=== PATIENT | female | born 1960 ===

== ENCOUNTER 2017-07-25 20:16 | Inpatient (IN) | payer MEDICAID ==
[2017-07-25 20:16] VITALS: BMI 24.7
[2017-07-25] MEDS ORDERED: Sodium Chloride 0.9% 1,000 ML IV STA ×2 (20:27→21:17)
[2017-07-25] MEDS ORDERED: Albuterol-Ipratrop 3 mg / 0.5 (3 ml) UD INH STA ×2 (20:46→21:18)
[2017-07-25] MEDS ORDERED: Albuterol-Ipratrop 3 mg / 0.5 (3 ml) UD ONE ×2 (21:09→22:36)
[2017-07-25] MEDS ORDERED: Iohexol 300 100 ML IJ ONE (21:10)
[2017-07-25] MEDS ORDERED: Sodium Chloride 0.9% 100 ML ONE (21:11)
[2017-07-25 21:16] LABS: VENOUS BLOOD GAS BASE EXCESS -0.1 mmol/L (0.0-2.0); VENOUS BLOOD GAS PCO2 52 mmHg (40-60); VENOUS BLOOD GAS PO2 19 mm/Hg (30-55); VENOUS BLOOD PH 7.32 (7.32-7.43)
[2017-07-25 21:21] LABS: BASO # 0.2 K/uL (0.0-0.2); BASO % 1.3 % (0.0-2.0); EOS % 0.3 % (0.0-4.0); HEMOGLOBIN 13.1 g/dL (12.0-16.0); LYMPH # 1.7 K/uL (1.0-4.3); LYMPH % 14.4 % (20.0-40.0); MEAN CORPUSCULAR HEMOGLOBIN 29.1 pg (27.0-31.0); MEAN CORPUSCULAR HGB CONC 33.1 g/dL (33.0-37.0); MEAN PLATELET VOLUME 9.5 fl (7.2-11.7); MONO # 0.9 K/uL (0.0-0.8); MONO % 7.7 % (0.0-10.0); NEUT # 9.2 K/uL (1.8-7.0); NEUT % 76.3 % (50.0-75.0); NRBC % 0.2 % (0.0-0.0); RBC 4.49 Mil/uL (3.80-5.20); RED CELL DISTRIBUTION WIDTH 16.6 % (11.5-14.5); WHITE BLOOD COUNT 12.1 K/uL (4.8-10.8)
[2017-07-25 21:32] LABS: ALB/GLOB RATIO 1.2 (1.0-2.1); ALBUMIN 3.8 g/dL (3.5-5.0); ALT/SGPT 16 U/L (9-52); AST/SGOT 24 U/L (14-36); BLOOD UREA NITROGEN 21 mg/dl (7-17); CALCIUM 8.7 mg/dL (8.4-10.2); GFR AFRICAN-AMERICAN > 60; GFR NON-AFRICAN AMERICAN > 60; LIPASE 86 U/L (23-300)
[2017-07-25 21:35] LABS: INR 1.1 (0.9-1.2); PARTIAL THROMBOPLASTIN TIME 49.3 Seconds (25.6-37.1); PROTHROMBIN TIME 12.7 Seconds (9.8-13.1)
--- NOTE | 2017-07-25 21:35 | ED PDOC ---
HPI:Nausea, Vomiting, Diarrhea Time Seen by Provider: 07/25/17 20:22 Chief Complaint (Nursing): GI Problem Chief Complaint (Provider): GI Problem History Per: Patient History/Exam Limitations: no limitations Onset/Duration Of Symptoms: Hrs (x 3) Current Symptoms Are (Timing): Still Present Additional Complaint(s): Ms. Lott is a 56 year old, female, with a history of chronic back pain, diabetes, asthma and COPD, who presents to the emergency department complaining of rectal bleeding, onset 3 hours ago. Patient reports shortness of breath, nausea, weakness, and 2 episodes of bright red per rectal bleeding with blood clots. Patient states no stool, just blood. Denies abdominal pain and associated fever. Patient reports taking nebulizer with minor relief of her symptoms. Patient states she cough, but is chronic due to COPD. PMD: Francisco Javier Pal Past Medical History Reviewed: Historical Data, Nursing Documentation, Vital Signs Vital Signs: Last Vital Signs Temp Pulse 122 H 07/25/17 20:22 Resp 16 07/25/17 20:22 BP 99/63 L 07/25/17 20:22 Pulse Ox 100 07/25/17 20:22 - Medical History PMH: Asthma, Bronchitis, COPD, Fibromyalgia, HTN, Hyperlipidemia Denies: Chronic Kidney Disease - Family History Family History: States: Unknown Family Hx - Social History Current smoker - smoking cessation education provided: Yes SMOKER/PACKS PER DAY:: 1 - Home Medications Home Medications: Ambulatory Orders Medication Instructions Recorded Acetaminophen/Oxycodone Hydr 1 tab PO Q6 PRN 02/02/14 [Percocet 10/325 mg Tab] Albuterol HFA [Ventolin HFA 90 1 puff IH Q6 PRN 02/02/14 mcg/actuation (8 g)] Baclofen 10 mg PO TID 02/02/14 Budesonide/Formoterol Fumarate 1 aer IH BID 02/02/14 [Symbicort] Hydrochlorothiazide/Losartan 1 tab PO DAILY 02/02/14 [Losartan Potassium-Hydrochlorothiazide 12.5 M] Ibuprofen [Ibuprofen] 600 mg PO Q6 PRN 02/02/14 MetFORMIN [glucoPHAGE] 1,000 mg PO BID 02/02/14 Montelukast [Singulair] 10 mg PO DAILY 02/02/14 Omeprazole 40 mg PO DAILY 02/02/14 Pregabalin [Lyrica] 75 mg PO BID 02/02/14 Sertraline HCl 75 mg PO DAILY 02/02/14 Loteprednol Etabonate [Alrex] 0.2 % EACHEYE DAILY 07/26/17 Pravastatin Sodium [Pravachol] 40 mg PO DAILY 07/26/17 - Allergies Allergies/Adverse Reactions: Allergies Allergy/AdvReac Type Severity Reaction Status Date / Time No Known Allergies Allergy Verified 02/02/14 12:53 Review of Systems ROS Statement: Except As Marked, All Systems Reviewed And Found Negative Constitutional: Positive for: Weakness. Negative for: Fever Respiratory: Positive for: Cough (Chronic), Shortness of Breath Gastrointestinal: Positive for: Nausea, Other (bright red per rectal bleeding with blood clots). Negative for: Abdominal Pain Physical Exam - Reviewed Nursing Documentation Reviewed: Yes Vital Signs Reviewed: Yes - Physical Exam Appears: Positive for: Non-toxic Head Exam: Positive for: ATRAUMATIC, NORMAL INSPECTION, NORMOCEPHALIC Skin: Positive for: Normal Color, Warm, Dry Eye Exam: Positive for: Normal appearance ENT: Positive for: Normal ENT Inspection Neck: Positive for: Normal Cardiovascular/Chest: Positive for: Tachycardia Respiratory: Positive for: Rhonchi, Wheezing (Bilateral expiratory wheezing) Gastrointestinal/Abdominal: Positive for: Normal Exam Back: Positive for: Normal Inspection Extremity: Positive for: Normal ROM. Negative for: Deformity Neurologic/Psych: Positive for: Alert, Oriented. Negative for: Motor/Sensory Deficits - Laboratory Results Result Diagrams: 07/25/17 21:00 07/25/17 21:00 - ECG O2 Sat by Pulse Oximetry: 100 (RA) Pulse Ox Interpretation: Normal - Critical Care Total Time (In Min): 30 Medical Decision Making Medical Decision Making: Time: 20:27 Impression: 56 year old female with bright red per rectal bleeding and COPD exacerbation Plan: - ABO/RH Type Stat - Type and Screen Stat - Venous Blood Gas Shock Panel - Accucheck - Protonix Inj - CMP - Lipase - EKG Time: 20:42 - BNP - Troponin I - Duoneb 3 mg/0.5 mg (3 ml) UD - Occult Blood, Stool, ER Stat - Peak Flow Pre/Post Treatment Time: 20:46 - SOLU-Medrol Time: 20:55 - CT Abdominal and Pelvis IV Contrast Only Time: 21:10 - Chest X-Ray Time: 21:18 - Peak Flow Pre/Post Treatment - Influenza A B Stat Time: 21:46 - Call GI Consult Discussed with Dr. Treadwell who agrees with plan and will see her as an inpatient. - Admit for further tx Dx GI Bleed, COPD Exacerbation, Influenza Guarded (+) for influenza a 2320 CTA A/P Findings: LOWER THORAX: No infiltrate seen in the lung bases. ABDOMEN: LIVER: Area of low density in the liver, abutting the falciform ligament, most compatible with focal fatty infiltration. GALLBLADDER AND BILE DUCTS: No CT evidence of acute cholecystitis. No evidence of significant biliary ductal dilatation. PANCREAS: No CT evidence of acute pancreatitis. SPLEEN: No acute abnormality of the spleen identified. ADRENALS: No acute abnormality of the adrenal glands identified. KIDNEYS AND URETERS: Incidental fluid density left renal lesion, measuring less than 10 mm. Consistent with the [employer]'s Incidental Findings Committee Report (J Am Juve Radiol 2010): Unless the patient's specific circumstances suggest otherwise , any cystic kidney lesion less than 1.0 cm not otherwise characterized in this report as possessing suspicious or indeterminate imaging features is/are highly likely to be benign and do not require follow-up imaging or biopsy. No acute abnormality of the kidneys identified. STOMACH AND BOWEL: Colonic diverticulosis, with no evidence of acute diverticulitis. Left hemicolon is decompressed, which limits evaluation for wall thickening. Otherwise, no significant abnormality of the bowel is identified. No evidence of bowel obstruction. No evidence of diffuse colitis/pancolitis. No acute abnormality of the stomach or duodenum identified. APPENDIX: Appendix is seen, and is within normal limits in appearance. PELVIS: BLADDER: No acute abnormality of the bladder identified. REPRODUCTIVE: Small, calcified posterior para-uterine masses, most compatible with calcified fibroids. No evidence of large adnexal masses. ABDOMEN and PELVIS: INTRAPERITONEAL SPACE: Elongated, fluid density/cystic, masslike area seen in the anterior abdomen, located just deep to the anterior abdominal wall musculature, abutting the peritoneal fascia. This measures 8 x 10 x 0.9 cm (craniocaudal x transverse x AP dimensions). It is suspicious for a chronic fluid collection. It has well-defined, partially calcified margins. It does not contain gas, have a thick wall, or demonstrate significant adjacent inflammation to suggest an abscess. It extends inferiorly to the level of the umbilicus. No evidence of free air or free fluid. BONES/JOINTS: No acute fractures or other acute bony abnormality noted. SOFT TISSUES: SOFT TISSUES: No evidence of abdominal wall hernia containing bowel. VASCULATURE: No evidence of abdominal aortic aneurysm. No evidence of periaortic hemorrhage. LYMPH NODES: No evidence of diffuse lymphadenopathy. IMPRESSION: - NO EVIDENCE OF SIGNIFICANT ACUTE PROCESS. - 10 x 8 x 0.9 cm elongated, fluid collection in the anterior abdomen, located just deep to the abdominal wall musculature, which has partially calcified margins. This is most likely a chronic calcified hematoma, postoperative seroma, or postoperative lymphocele. It does not have CT features to suggest a ovi abscess. Recommend clinical correlation. - Colonic diverticulosis, without diverticulitis. There is otherwise no cause for hematochezia identified. - See above for remaining findings. Scribe Attestation: Documented by Godfrey Griffin, acting as a scribe for Bc Caba Provider Scribe Attestation: All medical record entries made by the Scribe were at my direction and personally dictated by me. I have reviewed the chart and agree that the record accurately reflects my personal performance of the history, physical exam, medical decision making, and the department course for this patient. I have also personally directed, reviewed, and agree with the discharge instructions and disposition. Scribe Attestation: Documented by Godfrey Griffin, acting as a scribe for Bc Caba Provider Scribe Attestation: All medical record entries made by the Scribe were at my direction and personally dictated by me. I have reviewed the chart and agree that the record accurately reflects my personal performance of the history, physical exam, medical decision making, and the department course for this patient. I have also personally directed, reviewed, and agree with the discharge instructions and disposition. Disposition - Clinical Impression Clinical Impression: COPD exacerbation, GI bleed, Influenza - Patient ED Disposition Is Patient to be Admitted: Yes - Disposition Disposition: Routine/Home Disposition Time: 04:01 Condition: GUARDED
[2017-07-25 21:43] LABS: B-TYPE NATRIURETIC PEPTIDE 70.8 pg/ml (0-900)
[2017-07-25] MEDS ORDERED: Albuterol-Ipratrop 3 mg / 0.5 (3 ml) UD INH PRN (22:20)
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
[2017-07-25] MEDS: Pantoprazole 40 MG in Sodium Chloride 0.9% 100 ML IV SCH (22:37)
[2017-07-25] MEDS ORDERED: Sodium Chloride 0.9% 1,000 ML IV SCH (23:15)
--- NOTE | 2017-07-25 23:20 | CT ---
EXAM: CT Abdomen and Pelvis With Intravenous Contrast EXAM DATE/TIME: 07/25/2017 8:55 PM CLINICAL HISTORY: 56 years old, female; Signs and symptoms; Other: Rectal bleeding; Prior surgery; Surgery date: 6+ months; Surgery type: Bilat. Ovaian cysts. Hernia repair; Additional info: Gi bleed. Sent phy. Doc. TECHNIQUE: Axial computed tomography images of the abdomen and pelvis with intravenous contrast. All CT scans at this facility use one or more dose reduction techniques, viz.: automated exposure control; ma/kV adjustment per patient size (including targeted exams where dose is matched to indication; i.e. head); or iterative reconstruction technique. Coronal and sagittal reformatted images were created and reviewed. CONTRAST: 90 mL of [id number] administered intravenously. COMPARISON: No relevant prior studies available. FINDINGS: LOWER THORAX: No infiltrate seen in the lung bases. ABDOMEN: LIVER: Area of low density in the liver, abutting the falciform ligament, most compatible with focal fatty infiltration. GALLBLADDER AND BILE DUCTS: No CT evidence of acute cholecystitis. No evidence of significant biliary ductal dilatation. PANCREAS: No CT evidence of acute pancreatitis. SPLEEN: No acute abnormality of the spleen identified. ADRENALS: No acute abnormality of the adrenal glands identified. KIDNEYS AND URETERS: Incidental fluid density left renal lesion, measuring less than 10 mm. Consistent with the [employer]?s Incidental Findings Committee Report (J [employer]iol 2010): Unless the patient?s specific circumstances suggest otherwise, any cystic kidney lesion less than 1.0 cm not otherwise characterized in this report as possessing suspicious or indeterminate imaging features is/are highly likely to be benign and do not require follow-up imaging or biopsy. No acute abnormality of the kidneys identified. STOMACH AND BOWEL: Colonic diverticulosis, with no evidence of acute diverticulitis. Left hemicolon is decompressed, which limits evaluation for wall thickening. Otherwise, no significant abnormality of the bowel is identified. No evidence of bowel obstruction. No evidence of diffuse colitis/pancolitis. No acute abnormality of the stomach or duodenum identified. APPENDIX: Appendix is seen, and is within normal limits in appearance. PELVIS: BLADDER: No acute abnormality of the bladder identified. REPRODUCTIVE: Small, calcified posterior para-uterine masses, most compatible with calcified fibroids. No evidence of large adnexal masses. ABDOMEN and PELVIS: INTRAPERITONEAL SPACE: Elongated, fluid density/cystic, masslike area seen in the anterior abdomen, located just deep to the anterior abdominal wall musculature, abutting the peritoneal fascia. This measures 8 x 10 x 0.9 cm (craniocaudal x transverse x AP dimensions). It is suspicious for a chronic fluid collection. It has well-defined, partially calcified margins. It does not contain gas, have a thick wall, or demonstrate significant adjacent inflammation to suggest an abscess. It extends inferiorly to the level of the umbilicus. No evidence of free air or free fluid. BONES/JOINTS: No acute fractures or other acute bony abnormality noted. SOFT TISSUES: SOFT TISSUES: No evidence of abdominal wall hernia containing bowel. VASCULATURE: No evidence of abdominal aortic aneurysm. No evidence of periaortic hemorrhage. LYMPH NODES: No evidence of diffuse lymphadenopathy. IMPRESSION: - NO EVIDENCE OF SIGNIFICANT ACUTE PROCESS. - 10 x 8 x 0.9 cm elongated, fluid collection in the anterior abdomen, located just deep to the abdominal wall musculature, which has partially calcified margins. This is most likely a chronic calcified hematoma, postoperative seroma, or postoperative lymphocele. It does not have CT features to suggest a ovi abscess. Recommend clinical correlation. - Colonic diverticulosis, without diverticulitis. There is otherwise no cause for hematochezia identified. - See above for remaining findings.
[2017-07-26] MEDS: Pantoprazole 40 MG in Sodium Chloride 0.9% 100 ML IV SCH ×2 (05:20→10:34)
[2017-07-26 07:32] LABS: BLOOD UREA NITROGEN 14 mg/dl (7-17); CALCIUM 7.9 mg/dL (8.4-10.2); GFR AFRICAN-AMERICAN > 60; GFR NON-AFRICAN AMERICAN > 60
--- NOTE | 2017-07-26 09:16 | RAD ---
HISTORY: SOB COMPARISON: Chest radiograph dated 10/21/2016. FINDINGS: LUNGS: No active pulmonary disease. PLEURA: No significant pleural effusion identified, no pneumothorax apparent. CARDIOVASCULAR: Cardiomediastinal silhouette within normal limits. OSSEOUS STRUCTURES: Unchanged. VISUALIZED UPPER ABDOMEN: Normal. OTHER FINDINGS: None. IMPRESSION: No active disease.
[2017-07-26] MEDS: Fluticasone-Salmeterol 100-50mcg Diskus IH SCH ×2 (10:29→16:26)
[2017-07-26 10:33] LABS: HEMOGLOBIN 10.3 g/dL (12.0-16.0); MEAN CELL VOLUME 87.1 fl (81.0-99.0); MEAN CORPUSCULAR HEMOGLOBIN 29.8 pg (27.0-31.0); MEAN CORPUSCULAR HGB CONC 34.2 g/dL (33.0-37.0); RBC 3.46 Mil/uL (3.80-5.20); RED CELL DISTRIBUTION WIDTH 16.8 % (11.5-14.5); WHITE BLOOD COUNT 6.9 K/uL (4.8-10.8)
[2017-07-26] MEDS ORDERED: Albuterol HFA 90 mcg/actuation (8 g) IH PRN (11:23)
[2017-07-26] MEDS ORDERED: methylPREDNISolone 40 MG in Sodium Chloride 0.9% 50 ML IVPB STA (11:26)
[2017-07-26] MEDS ORDERED: Albuterol-Ipratrop 3 mg / 0.5 (3 ml) UD INH STA (11:28)
[2017-07-26] MEDS ORDERED: Pantoprazole 40 MG in Sodium Chloride 0.9% 100 ML IV SCH (11:30)
[2017-07-26] MEDS: Oxycodone/Acetaminophen 5/325 mg Tab PO PRN ×4 (12:04→21:56)
[2017-07-26] MEDS: Albuterol-Ipratrop 3 mg / 0.5 (3 ml) UD INH SCH ×3 (12:49→19:49)
[2017-07-26] MEDS ORDERED: methylPREDNISolone 40 MG in Sodium Chloride 0.9% 50 ML IV STA (13:29)
[2017-07-26] MEDS ORDERED: MethylPREDNISolone 40 mg Vial IVP ONE (14:00)
--- NOTE | 2017-07-26 14:46 | CP.CCUPN ---
CCU Subjective - Physician Review Subjective (Free Text): All Physician notes ad Nursing notes reviewed: No further BMs since prior to admission. Denies any abdominal pain, N/V, dizziness, weakness. Remains on PPI drip and NSS at 100ml/hr. Discussed events with GI; repeat HGB lower. Other Vitals and I/Os reviewed. ROS: No other pertinent negs or positives on 10+ system review. PMSFH: All other historical Nursing and physician documentation reviewed to date; no new pertinent info noted relevant to current medical problems. CXR: (my interp)- clear ling blair. CTAP results reviewed: no acute pathology, no abscess, + colonic divetriculosis IMPRESSION / MAJOR PROBLEMS NOW: 1. GI Bleed, with BRBPR; unclear etiol: - UGI with rapid transit 2 NSAID- gastritis, versus true Lower GI tract source: diverticular bleed, AVM, other occult CA?? 2. COPD with acute TracheoBronchitis exacerbated by Influenza A infection. 3. Chronic Pain Syndrome PLAN: 1. Could stop PPI drip, convert to PO PPi bid. 2. Serial H/H monitoring. 3. Initially hypotensive and tachycardic, now resolved; GI considering EGD. 4. Empiric steroids started in ED; continue with DuoNebs. Hold on Abx, on Oseltamavir. 5. Cautious analgesics. 6. So far, no need for hemodynamic nor assisted breathing support. CCU Objective - Vital Signs / Intake & Output Vital Signs (Last 4 hours): Vital Signs Temp Pulse 07/26/17 12:49 94 H 07/26/17 12:00 98.1 F Intake and Output (Last 8hrs): Intake & Output 07/25/17 07/26/17 07/26/17 22:59 06:59 14:59 Intake Total 320 Balance 320 Weight 130 lb Intake: IV 120 Oral 200 Other: # Voids Urine, Voided 2 - Physical Exam Head: Positive for: Normocephalic Pupils: Positive for: PERRL Extroacular Muscles: Positive for: EOMI Conjunctiva: Positive for: Normal. Negative for: Icteric Mouth: Positive for: Moist Mucous Membranes Neck: Negative for: JVD Respiratory/Chest: Positive for: Wheezes, Rhonchi. Negative for: Respiratory Distress, Accessory Muscle Use Cardiovascular: Positive for: Regular Rate and Rhythm, Tachycardic. Negative for: Murmurs, Rub Abdomen: Positive for: Normal Bowel Sounds. Negative for: Tenderness, Distention, Mass/Organomegaly Lower Extremity: Positive for: NORMAL PULSES. Negative for: CALF TENDERNESS, Cyanosis Neurological: Positive for: GCS=15, CN II-XII Intact, Motor Func Grossly Intact , Normal Sensory Function Skin: Positive for: Warm, Dry. Negative for: Rashes Psychiatric: Positive for: Alert, Oriented x 3 - Medications Active Medications: Active Medications Generic Name Dose Route Start Last Admin Trade Name Freq PRN Reason Stop Dose Admin Albuterol 1 puff 07/26/17 11:23 Ventolin Hfa 90 Mcg/Actuation (8 G) IH Q6 PRN Shortness of Breath Albuterol/Ipratropium 3 ml 07/25/17 22:20 Duoneb 3 Mg/0.5 Mg (3 Ml) Ud INH RQ6 PRN Shortness of Breath Albuterol/Ipratropium 3 ml 07/26/17 12:00 07/26/17 12:49 Duoneb 3 Mg/0.5 Mg (3 Ml) Ud INH 3 ml RQID SHANNAN Administration Baclofen 10 mg 07/26/17 13:00 Lioresal PO TID SHANNAN Home Med 0.2 % 07/27/17 09:00 Loteprednol Etabonate [Alrex] EACHEYE DAILY SHANNAN Hydrochlorothiazide 12.5 mg 07/27/17 09:00 Microzide PO DAILY SHANNAN Pantoprazole Sodium 40 mg/ 100 mls @ 20 mls/hr 07/26/17 11:30 07/26/17 14:25 Sodium Chloride IV 20 mls/hr Q5H SHANNAN Administration Losartan Potassium 50 mg 07/27/17 09:00 Cozaar PO DAILY SHANNAN Methylprednisolone 40 mg 07/26/17 17:00 Solu-Medrol IVP Q8 SHANNAN Montelukast Sodium 10 mg 07/27/17 09:00 Singulair PO DAILY SHANNAN Oseltamivir Phosphate 75 mg 07/26/17 09:00 07/26/17 10:29 Tamiflu Cap PO 75 mg BID SHANNAN Administration Protocol Oxycodone/Acetaminophen 1 tab 07/26/17 11:25 07/26/17 12:04 Percocet 5/325 Mg Tab PO 07/29/17 11:26 1 tab Q4 PRN Administration Pain, moderate (4-7) Oxycodone/Acetaminophen 2 tab 07/26/17 11:25 Percocet 5/325 Mg Tab PO 07/29/17 11:26 Q6 PRN Pain, severe (8-10) Pravastatin Sodium 40 mg 07/27/17 09:00 Pravachol PO DAILY SHANNAN Pregabalin 75 mg 07/26/17 17:00 Lyrica PO BID SHANNAN Fluticasone/Salmeterol 1 puff 07/26/17 09:00 07/26/17 10:29 Advair Diskus 100/50 IH 1 spr BID SHANNAN Administration Sertraline HCl 75 mg 07/27/17 09:00 Zoloft PO DAILY SHANNAN - Patient Studies Lab Studies: Lab Studies 07/26/17 07/26/17 07/26/17 Range/Units 12:20 10:25 08:36 WBC 6.9 (4.8-10.8) K/uL RBC 3.46 L (3.80-5.20) Mil/uL Hgb 10.3 L D (12.0-16.0) g/dL Hct 30.1 L (34.0-47.0) % MCV 87.1 (81.0-99.0) fl MCH 29.8 (27.0-31.0) pg MCHC 34.2 (33.0-37.0) g/dL RDW 16.8 H (11.5-14.5) % Plt Count 182 (130-400) K/uL MPV (7.2-11.7) fl Neut % (Auto) (50.0-75.0) % Lymph % (Auto) (20.0-40.0) % Starke % (Auto) (0.0-10.0) % Eos % (Auto) (0.0-4.0) % Baso % (Auto) (0.0-2.0) % Neut # (Auto) (1.8-7.0) K/uL Lymph # (Auto) (1.0-4.3) K/uL Starke # (Auto) (0.0-0.8) K/uL Eos # (Auto) (0.0-0.7) K/uL Baso # (Auto) (0.0-0.2) K/uL PT (9.8-13.1) Seconds INR (0.9-1.2) APTT (25.6-37.1) Seconds pO2 (30-55) mm/Hg VBG pH (7.32-7.43) VBG pCO2 (40-60) mmHg VBG HCO3 mmol/L VBG Total CO2 (22-28) mmol/L VBG O2 Sat (Calc) (40-65) % VBG Base Excess (0.0-2.0) mmol/L Glucose (65-105) mg/dL Lactate (0.7-2.1) mmol/L FiO2 % Crit Value Called To Crit Value Called By Crit Value Read Back Blood Gas Notified Time Sodium (132-148) mmol/l Potassium (3.6-5.0) MMOL/L Chloride (98-107) mmol/L Carbon Dioxide (22-30) mmol/L Anion Gap (10-20) BUN (7-17) mg/dl Creatinine (0.7-1.2) mg/dl Est GFR ( Amer) Est GFR (Non-Af Amer) POC Glucose (mg/dL) 98 119 H (65-110) mg/dL Random Glucose (65-105) mg/dL Calcium (8.4-10.2) mg/dL Total Bilirubin (0.2-1.3) mg/dl AST (14-36) U/L ALT (9-52) U/L Alkaline Phosphatase (38-126) U/L Troponin I (0.00-0.120) ng/mL NT-Pro-B Natriuret Pep (0-900) pg/ml Total Protein (6.3-8.2) G/DL Albumin (3.5-5.0) g/dL Globulin (2.2-3.9) gm/dL Albumin/Globulin Ratio (1.0-2.1) Lipase (23-300) U/L Influenza Typ A,B (EIA) (NEGATIVE) Blood Type Blood Type Confirm Antibody Screen BBK History Checked 07/26/17 07/26/17 07/25/17 Range/Units 07:00 01:07 21:39 WBC (4.8-10.8) K/uL RBC (3.80-5.20) Mil/uL Hgb (12.0-16.0) g/dL Hct (34.0-47.0) % MCV (81.0-99.0) fl MCH (27.0-31.0) pg MCHC (33.0-37.0) g/dL RDW (11.5-14.5) % Plt Count (130-400) K/uL MPV (7.2-11.7) fl Neut % (Auto) (50.0-75.0) % Lymph % (Auto) (20.0-40.0) % Starke % (Auto) (0.0-10.0) % Eos % (Auto) (0.0-4.0) % Baso % (Auto) (0.0-2.0) % Neut # (Auto) (1.8-7.0) K/uL Lymph # (Auto) (1.0-4.3) K/uL Starke # (Auto) (0.0-0.8) K/uL Eos # (Auto) (0.0-0.7) K/uL Baso # (Auto) (0.0-0.2) K/uL PT (9.8-13.1) Seconds INR (0.9-1.2) APTT (25.6-37.1) Seconds pO2 (30-55) mm/Hg VBG pH (7.32-7.43) VBG pCO2 (40-60) mmHg VBG HCO3 mmol/L VBG Total CO2 (22-28) mmol/L VBG O2 Sat (Calc) (40-65) % VBG Base Excess (0.0-2.0) mmol/L Glucose (65-105) mg/dL Lactate (0.7-2.1) mmol/L FiO2 % Crit Value Called To Crit Value Called By Crit Value Read Back Blood Gas Notified Time Sodium 139 (132-148) mmol/l Potassium 4.2 (3.6-5.0) MMOL/L Chloride 106 (98-107) mmol/L Carbon Dioxide 24 (22-30) mmol/L Anion Gap 13 (10-20) BUN 14 (7-17) mg/dl Creatinine 0.5 L (0.7-1.2) mg/dl Est GFR ( Amer) > 60 Est GFR (Non-Af Amer) > 60 POC Glucose (mg/dL) 168 H (65-110) mg/dL Random Glucose 155 H (65-105) mg/dL Calcium 7.9 L (8.4-10.2) mg/dL Total Bilirubin (0.2-1.3) mg/dl AST (14-36) U/L ALT (9-52) U/L Alkaline Phosphatase (38-126) U/L Troponin I (0.00-0.120) ng/mL NT-Pro-B Natriuret Pep (0-900) pg/ml Total Protein (6.3-8.2) G/DL Albumin (3.5-5.0) g/dL Globulin (2.2-3.9) gm/dL Albumin/Globulin Ratio (1.0-2.1) Lipase (23-300) U/L Influenza Typ A,B (EIA) Pos for influenza a H (NEGATIVE) Blood Type Blood Type Confirm Antibody Screen BBK History Checked 07/25/17 07/25/17 07/25/17 Range/Units 21:33 21:12 21:00 WBC (4.8-10.8) K/uL RBC (3.80-5.20) Mil/uL Hgb (12.0-16.0) g/dL Hct (34.0-47.0) % MCV (81.0-99.0) fl MCH (27.0-31.0) pg MCHC (33.0-37.0) g/dL RDW (11.5-14.5) % Plt Count (130-400) K/uL MPV (7.2-11.7) fl Neut % (Auto) (50.0-75.0) % Lymph % (Auto) (20.0-40.0) % Starke % (Auto) (0.0-10.0) % Eos % (Auto) (0.0-4.0) % Baso % (Auto) (0.0-2.0) % Neut # (Auto) (1.8-7.0) K/uL Lymph # (Auto) (1.0-4.3) K/uL Starke # (Auto) (0.0-0.8) K/uL Eos # (Auto) (0.0-0.7) K/uL Baso # (Auto) (0.0-0.2) K/uL PT 12.7 (9.8-13.1) Seconds INR 1.1 (0.9-1.2) APTT 49.3 H (25.6-37.1) Seconds pO2 19 L (30-55) mm/Hg VBG pH 7.32 (7.32-7.43) VBG pCO2 52 (40-60) mmHg VBG HCO3 22.9 mmol/L VBG Total CO2 28.4 H (22-28) mmol/L VBG O2 Sat (Calc) 22.6 L (40-65) % VBG Base Excess -0.1 L (0.0-2.0) mmol/L Glucose 163 H (65-105) mg/dL Lactate 4.4 H* (0.7-2.1) mmol/L FiO2 21.0 % Crit Value Called To Rosales mccullough md Crit Value Called By [facility] Crit Value Read Back Y Blood Gas Notified Time 2115 Sodium 175.0 H* (132-148) mmol/l Potassium (3.6-5.0) MMOL/L Chloride 123.0 H (98-107) mmol/L Carbon Dioxide (22-30) mmol/L Anion Gap (10-20) BUN (7-17) mg/dl Creatinine (0.7-1.2) mg/dl Est GFR ( Amer) Est GFR (Non-Af Amer) POC Glucose (mg/dL) (65-110) mg/dL Random Glucose (65-105) mg/dL Calcium (8.4-10.2) mg/dL Total Bilirubin (0.2-1.3) mg/dl AST (14-36) U/L ALT (9-52) U/L Alkaline Phosphatase (38-126) U/L Troponin I (0.00-0.120) ng/mL NT-Pro-B Natriuret Pep (0-900) pg/ml Total Protein (6.3-8.2) G/DL Albumin (3.5-5.0) g/dL Globulin (2.2-3.9) gm/dL Albumin/Globulin Ratio (1.0-2.1) Lipase (23-300) U/L Influenza Typ A,B (EIA) (NEGATIVE) Blood Type Blood Type Confirm A NEGATIVE Antibody Screen BBK History Checked 07/25/17 07/25/17 07/25/17 Range/Units 21:00 21:00 21:00 WBC 12.1 H (4.8-10.8) K/uL RBC 4.49 (3.80-5.20) Mil/uL Hgb 13.1 (12.0-16.0) g/dL Hct 39.5 (34.0-47.0) % MCV 88.0 (81.0-99.0) fl MCH 29.1 (27.0-31.0) pg MCHC 33.1 (33.0-37.0) g/dL RDW 16.6 H (11.5-14.5) % Plt Count 235 (130-400) K/uL MPV 9.5 (7.2-11.7) fl Neut % (Auto) 76.3 H (50.0-75.0) % Lymph % (Auto) 14.4 L (20.0-40.0) % Starke % (Auto) 7.7 (0.0-10.0) % Eos % (Auto) 0.3 (0.0-4.0) % Baso % (Auto) 1.3 (0.0-2.0) % Neut # (Auto) 9.2 H (1.8-7.0) K/uL Lymph # (Auto) 1.7 (1.0-4.3) K/uL Starke # (Auto) 0.9 H (0.0-0.8) K/uL Eos # (Auto) 0.0 (0.0-0.7) K/uL Baso # (Auto) 0.2 (0.0-0.2) K/uL PT (9.8-13.1) Seconds INR (0.9-1.2) APTT (25.6-37.1) Seconds pO2 (30-55) mm/Hg VBG pH (7.32-7.43) VBG pCO2 (40-60) mmHg VBG HCO3 mmol/L VBG Total CO2 (22-28) mmol/L VBG O2 Sat (Calc) (40-65) % VBG Base Excess (0.0-2.0) mmol/L Glucose (65-105) mg/dL Lactate (0.7-2.1) mmol/L FiO2 % Crit Value Called To Crit Value Called By Crit Value Read Back Blood Gas Notified Time Sodium 141 (132-148) mmol/l Potassium 4.5 (3.6-5.0) MMOL/L Chloride 105 (98-107) mmol/L Carbon Dioxide 24 (22-30) mmol/L Anion Gap 17 (10-20) BUN 21 H (7-17) mg/dl Creatinine 0.7 (0.7-1.2) mg/dl Est GFR ( Amer) > 60 Est GFR (Non-Af Amer) > 60 POC Glucose (mg/dL) (65-110) mg/dL Random Glucose 170 H (65-105) mg/dL Calcium 8.7 (8.4-10.2) mg/dL Total Bilirubin 0.4 (0.2-1.3) mg/dl AST 24 (14-36) U/L ALT 16 (9-52) U/L Alkaline Phosphatase 63 (38-126) U/L Troponin I 0.0180 (0.00-0.120) ng/mL NT-Pro-B Natriuret Pep 70.8 (0-900) pg/ml Total Protein 7.0 (6.3-8.2) G/DL Albumin 3.8 (3.5-5.0) g/dL Globulin 3.2 (2.2-3.9) gm/dL Albumin/Globulin Ratio 1.2 (1.0-2.1) Lipase 86 (23-300) U/L Influenza Typ A,B (EIA) (NEGATIVE) Blood Type A NEGATIVE Blood Type Confirm Antibody Screen Negative BBK History Checked No verified bt 07/25/17 Range/Units 20:26 WBC (4.8-10.8) K/uL RBC (3.80-5.20) Mil/uL Hgb (12.0-16.0) g/dL Hct (34.0-47.0) % MCV (81.0-99.0) fl MCH (27.0-31.0) pg MCHC (33.0-37.0) g/dL RDW (11.5-14.5) % Plt Count (130-400) K/uL MPV (7.2-11.7) fl Neut % (Auto) (50.0-75.0) % Lymph % (Auto) (20.0-40.0) % Starke % (Auto) (0.0-10.0) % Eos % (Auto) (0.0-4.0) % Baso % (Auto) (0.0-2.0) % Neut # (Auto) (1.8-7.0) K/uL Lymph # (Auto) (1.0-4.3) K/uL Starke # (Auto) (0.0-0.8) K/uL Eos # (Auto) (0.0-0.7) K/uL Baso # (Auto) (0.0-0.2) K/uL PT (9.8-13.1) Seconds INR (0.9-1.2) APTT (25.6-37.1) Seconds pO2 (30-55) mm/Hg VBG pH (7.32-7.43) VBG pCO2 (40-60) mmHg VBG HCO3 mmol/L VBG Total CO2 (22-28) mmol/L VBG O2 Sat (Calc) (40-65) % VBG Base Excess (0.0-2.0) mmol/L Glucose (65-105) mg/dL Lactate (0.7-2.1) mmol/L FiO2 % Crit Value Called To Crit Value Called By Crit Value Read Back Blood Gas Notified Time Sodium (132-148) mmol/l Potassium (3.6-5.0) MMOL/L Chloride (98-107) mmol/L Carbon Dioxide (22-30) mmol/L Anion Gap (10-20) BUN (7-17) mg/dl Creatinine (0.7-1.2) mg/dl Est GFR ( Amer) Est GFR (Non-Af Amer) POC Glucose (mg/dL) 175 H (65-110) mg/dL Random Glucose (65-105) mg/dL Calcium (8.4-10.2) mg/dL Total Bilirubin (0.2-1.3) mg/dl AST (14-36) U/L ALT (9-52) U/L Alkaline Phosphatase (38-126) U/L Troponin I (0.00-0.120) ng/mL NT-Pro-B Natriuret Pep (0-900) pg/ml Total Protein (6.3-8.2) G/DL Albumin (3.5-5.0) g/dL Globulin (2.2-3.9) gm/dL Albumin/Globulin Ratio (1.0-2.1) Lipase (23-300) U/L Influenza Typ A,B (EIA) (NEGATIVE) Blood Type Blood Type Confirm Antibody Screen BBK History Checked Laboratory Results - last 24 hr 07/25/17 07/25/17 07/25/17 20:26 21:00 21:00 WBC 12.1 H RBC 4.49 Hgb 13.1 Hct 39.5 MCV 88.0 MCH 29.1 MCHC 33.1 RDW 16.6 H Plt Count 235 MPV 9.5 Neut % (Auto) 76.3 H Lymph % (Auto) 14.4 L Starke % (Auto) 7.7 Eos % (Auto) 0.3 Baso % (Auto) 1.3 Neut # (Auto) 9.2 H Lymph # (Auto) 1.7 Starke # (Auto) 0.9 H Eos # (Auto) 0.0 Baso # (Auto) 0.2 PT INR APTT pO2 VBG pH VBG pCO2 VBG HCO3 VBG Total CO2 VBG O2 Sat (Calc) VBG Base Excess Glucose Lactate FiO2 Crit Value Called To Crit Value Called By Crit Value Read Back Blood Gas Notified Time Sodium Potassium Chloride Carbon Dioxide Anion Gap BUN Creatinine Est GFR ( Amer) Est GFR (Non-Af Amer) POC Glucose (mg/dL) 175 H Random Glucose Calcium Total Bilirubin AST ALT Alkaline Phosphatase Troponin I NT-Pro-B Natriuret Pep Total Protein Albumin Globulin Albumin/Globulin Ratio Lipase Influenza Typ A,B (EIA) Blood Type A NEGATIVE Blood Type Confirm Antibody Screen Negative BBK History Checked No verified bt 07/25/17 07/25/17 07/25/17 21:00 21:00 21:12 WBC RBC Hgb Hct MCV MCH MCHC RDW Plt Count MPV Neut % (Auto) Lymph % (Auto) Starke % (Auto) Eos % (Auto) Baso % (Auto) Neut # (Auto) Lymph # (Auto) Starke # (Auto) Eos # (Auto) Baso # (Auto) PT 12.7 INR 1.1 APTT 49.3 H pO2 19 L VBG pH 7.32 VBG pCO2 52 VBG HCO3 22.9 VBG Total CO2 28.4 H VBG O2 Sat (Calc) 22.6 L VBG Base Excess -0.1 L Glucose 163 H Lactate 4.4 H* FiO2 21.0 Crit Value Called To Rosales mccullough md Crit Value Called By 333 Crit Value Read Back Y Blood Gas Notified Time 2115 Sodium 141 175.0 H* Potassium 4.5 Chloride 105 123.0 H Carbon Dioxide 24 Anion Gap 17 BUN 21 H Creatinine 0.7 Est GFR ( Amer) > 60 Est GFR (Non-Af Amer) > 60 POC Glucose (mg/dL) Random Glucose 170 H Calcium 8.7 Total Bilirubin 0.4 AST 24 ALT 16 Alkaline Phosphatase 63 Troponin I 0.0180 NT-Pro-B Natriuret Pep 70.8 Total Protein 7.0 Albumin 3.8 Globulin 3.2 Albumin/Globulin Ratio 1.2 Lipase 86 Influenza Typ A,B (EIA) Blood Type Blood Type Confirm Antibody Screen BBK History Checked 07/25/17 07/25/17 07/26/17 21:33 21:39 01:07 WBC RBC Hgb Hct MCV MCH MCHC RDW Plt Count MPV Neut % (Auto) Lymph % (Auto) Starke % (Auto) Eos % (Auto) Baso % (Auto) Neut # (Auto) Lymph # (Auto) Starke # (Auto) Eos # (Auto) Baso # (Auto) PT INR APTT pO2 VBG pH VBG pCO2 VBG HCO3 VBG Total CO2 VBG O2 Sat (Calc) VBG Base Excess Glucose Lactate FiO2 Crit Value Called To Crit Value Called By Crit Value Read Back Blood Gas Notified Time Sodium Potassium Chloride Carbon Dioxide Anion Gap BUN Creatinine Est GFR ( Amer) Est GFR (Non-Af Amer) POC Glucose (mg/dL) 168 H Random Glucose Calcium Total Bilirubin AST ALT Alkaline Phosphatase Troponin I NT-Pro-B Natriuret Pep Total Protein Albumin Globulin Albumin/Globulin Ratio Lipase Influenza Typ A,B (EIA) Pos for influenza a H Blood Type Blood Type Confirm A NEGATIVE Antibody Screen BBK History Checked 07/26/17 07/26/17 07/26/17 07:00 08:36 10:25 WBC 6.9 RBC 3.46 L Hgb 10.3 L D Hct 30.1 L MCV 87.1 MCH 29.8 MCHC 34.2 RDW 16.8 H Plt Count 182 MPV Neut % (Auto) Lymph % (Auto) Starke % (Auto) Eos % (Auto) Baso % (Auto) Neut # (Auto) Lymph # (Auto) Starke # (Auto) Eos # (Auto) Baso # (Auto) PT INR APTT pO2 VBG pH VBG pCO2 VBG HCO3 VBG Total CO2 VBG O2 Sat (Calc) VBG Base Excess Glucose Lactate FiO2 Crit Value Called To Crit Value Called By Crit Value Read Back Blood Gas Notified Time Sodium 139 Potassium 4.2 Chloride 106 Carbon Dioxide 24 Anion Gap 13 BUN 14 Creatinine 0.5 L Est GFR ( Amer) > 60 Est GFR (Non-Af Amer) > 60 POC Glucose (mg/dL) 119 H Random Glucose 155 H Calcium 7.9 L Total Bilirubin AST ALT Alkaline Phosphatase Troponin I NT-Pro-B Natriuret Pep Total Protein Albumin Globulin Albumin/Globulin Ratio Lipase Influenza Typ A,B (EIA) Blood Type Blood Type Confirm Antibody Screen BBK History Checked 07/26/17 12:20 WBC RBC Hgb Hct MCV MCH MCHC RDW Plt Count MPV Neut % (Auto) Lymph % (Auto) Starke % (Auto) Eos % (Auto) Baso % (Auto) Neut # (Auto) Lymph # (Auto) Starke # (Auto) Eos # (Auto) Baso # (Auto) PT INR APTT pO2 VBG pH VBG pCO2 VBG HCO3 VBG Total CO2 VBG O2 Sat (Calc) VBG Base Excess Glucose Lactate FiO2 Crit Value Called To Crit Value Called By Crit Value Read Back Blood Gas Notified Time Sodium Potassium Chloride Carbon Dioxide Anion Gap BUN Creatinine Est GFR ( Amer) Est GFR (Non-Af Amer) POC Glucose (mg/dL) 98 Random Glucose Calcium Total Bilirubin AST ALT Alkaline Phosphatase Troponin I NT-Pro-B Natriuret Pep Total Protein Albumin Globulin Albumin/Globulin Ratio Lipase Influenza Typ A,B (EIA) Blood Type Blood Type Confirm Antibody Screen BBK History Checked Radiology Interpretations (Free Text): See Above Fingerstick Blood Sugar Results: 98 Review of Systems - Review of Systems All systems: reviewed and no additional remarkable complaints except (as above) Critical Care Progress Note - Nutrition Nutrition: Nutrition Category Date Time Status Regular Diet [DIET] Diets 07/26/17 Breakfast Active
[2017-07-26] MEDS: MethylPREDNISolone 40 mg Vial IVP SCH (16:25)
[2017-07-26] MEDS: Pantoprazole 40 mg EC Tab PO SCH (16:26)
[2017-07-26] MEDS ORDERED: methylPREDNISolone 40 MG in Sodium Chloride 0.9% 50 ML IVPB SCH (17:00)
--- NOTE | 2017-07-26 18:44 | CP.PCM.PN ---
Subjective - Date & Time of Evaluation Date of Evaluation: 07/26/17 Time of Evaluation: 08:00 - Subjective Subjective: Patient seen and examined bedside. Feeling a little better . Still with generalized weakness , cough, dyspnea and O2Sat in the low 90 % with minimal effort while in Room air No more rectal bleed , denies abdominal pain or discomfort Bp 101/75 HR 88 afebrile WBC 6.9 Hgb 10. influenza a positive Objective - Vital Signs/Intake and Output Vital Signs (last 24 hours): Temp Pulse Resp BP Pulse Ox 97.4 F L 101 H 23 97/48 L 92 L 07/26/17 16:00 07/26/17 18:00 07/26/17 18:00 07/26/17 18:00 07/26/17 18:00 Intake and Output: 07/26/17 07/26/17 06:59 18:59 Intake Total 640 Balance 640 - Medications Medications: Current Medications Albuterol (Ventolin Hfa 90 Mcg/Actuation (8 G)) 1 puff IH Q6 PRN PRN Reason: Shortness of Breath Albuterol/Ipratropium (Duoneb 3 Mg/0.5 Mg (3 Ml) Ud) 3 ml INH RQ6 PRN PRN Reason: Shortness of Breath Albuterol/Ipratropium (Duoneb 3 Mg/0.5 Mg (3 Ml) Ud) 3 ml INH RQID [facility] Last Admin: 07/26/17 16:28 Dose: 3 ml Baclofen (Lioresal) 10 mg PO TID [facility] Last Admin: 07/26/17 16:26 Dose: 10 mg Home Med (Loteprednol Etabonate [Alrex]) 0.2 % EACHEYE DAILY [facility] Hydrochlorothiazide (Microzide) 12.5 mg PO DAILY [facility] Losartan Potassium (Cozaar) 50 mg PO DAILY [facility] Methylprednisolone (Solu-Medrol) 40 mg IVP Q8 [facility] Last Admin: 07/26/17 16:25 Dose: 40 mg Montelukast Sodium (Singulair) 10 mg PO DAILY [facility] Oseltamivir Phosphate (Tamiflu Cap) 75 mg PO BID SHANNAN PRN Reason: Protocol Last Admin: 07/26/17 16:26 Dose: 75 mg Oxycodone/Acetaminophen (Percocet 5/325 Mg Tab) 1 tab PO Q4 PRN PRN Reason: Pain, moderate (4-7) Stop: 07/29/17 11:26 Last Admin: 07/26/17 16:30 Dose: 1 tab Oxycodone/Acetaminophen (Percocet 5/325 Mg Tab) 2 tab PO Q6 PRN PRN Reason: Pain, severe (8-10) Stop: 07/29/17 11:26 Last Admin: 07/26/17 12:04 Dose: 2 tab Pantoprazole Sodium (Protonix Ec Tab) 40 mg PO BID [facility] Last Admin: 07/26/17 16:26 Dose: 40 mg Pravastatin Sodium (Pravachol) 40 mg PO DAILY [facility] Pregabalin (Lyrica) 75 mg PO BID [facility] Last Admin: 07/26/17 18:15 Dose: 75 mg Fluticasone/Salmeterol (Advair Diskus 100/50) 1 puff IH BID [facility] Last Admin: 07/26/17 16:26 Dose: 1 spr Sertraline HCl (Zoloft) 75 mg PO DAILY [facility] - Labs Labs: 07/26/17 10:25 07/26/17 07:00 PT 12.7 Seconds (9.8-13.1) 07/25/17 21:00 INR 1.1 (0.9-1.2) 07/25/17 21:00 APTT 49.3 Seconds (25.6-37.1) H 07/25/17 21:00 - Constitutional Appears: No Acute Distress - Head Exam Head Exam: ATRAUMATIC, NORMAL INSPECTION, NORMOCEPHALIC - Eye Exam Eye Exam: EOMI, Normal appearance, PERRL Pupil Exam: NORMAL ACCOMODATION - ENT Exam ENT Exam: Mucous Membranes Moist, Normal Exam - Neck Exam Neck Exam: Full ROM, Normal Inspection - Respiratory Exam Respiratory Exam: Prolonged Expiratory Phase, Rhonchi (left hemithorax), NORMAL BREATHING PATTERN. absent: Accessory Muscle Use, Wheezes, Respiratory Distress - Cardiovascular Exam Cardiovascular Exam: REGULAR RHYTHM, RRR, +S1, +S2. absent: JVD - GI/Abdominal Exam GI & Abdominal Exam: Soft, Normal Bowel Sounds. absent: Distended, Guarding, Tenderness, Rebound - Rectal Exam Rectal Exam: Deferred - Extremities Exam Extremities Exam: Full ROM, Normal Capillary Refill, Normal Inspection. absent : Calf Tenderness, Pedal Edema - Back Exam Back Exam: NORMAL INSPECTION - Neurological Exam Neurological Exam: Alert, Awake, CN II-XII Intact, Oriented x3 - Psychiatric Exam Psychiatric exam: Normal Affect, Normal Mood - Skin Skin Exam: Dry, Intact, Normal Color, Warm Assessment and Plan - Assessment and Plan (Free Text) Assessment: 56 y/o female with PMH of GERD, asthma/COPD9 heavy smoker ), HTN, HLD, and DM2 came in with 2-3 days of worsening SOB. She complained of generalized weakness. She also noted that she had fresh blood per rectum and diarrhea today, up to 12 episodes. Patient denies CP, Abd pain, n/v. Patient denies any unusual ingestions. Patient states she does take ASA 81 daily as well as Naproxen 2x daily and occasionally ibuprofen. She states she has had an endoscopy in the past for GERD, but denies colonoscopy.In ER found to be influenza A positive.She was admitted for COPD exacerbation , GI bleed and influenza 1. Gastrointestinal bleed of unclear etiology At present no more bleeding episodes Hgb dropped from 13-- 10 GI consulted and case discussed with Dr. Treadwell .Continue H& H monitoring started diet and tolerating well Continue PPI She will need EGD and colosnoscopy evaluation at some point 2. COPD exacerbation most likely secondary to Influenza A Started Solumedrol 40 mg IV Q8, Duoneb RTC O2 via NC CXR showed no active disease Continue tamiflu and respiratory isolation 3. Chronic pain syndrome/ depression Started on percoset PRN for pain on baclofen, Lyrica, sertraline 4. DM2 accuchhecks , insulin coverage diabetic diet Metformin on hold due to IV contrast ( resume after 48 hours ) 5. Influenza type A on tamiflu 6. Hypertension controlled on HCTZ and losartan 7. DVT PPx SCDs
--- NOTE | 2017-07-26 19:11 | CARD ---
APPROVED REPORT EKG Measurement Heart [id number] <Conclusion> Sinus tachycardia Otherwise normal ECG
[2017-07-26] MEDS: guaiFENesin 100 mg/5 ml Syrup UD PO PRN (21:54)
[2017-07-26] MEDS ORDERED: Insulin Lispro (humaLOG) 100 Units/ml Inj SC SCH (22:00)
--- NOTE | 2017-07-26 22:50 | CP.PCM.CON ---
History of Present Illness - History of Present Illness History of Present Illness: 56 yo female with h/o COPD, DM, htn, and low back pain admitted with cough and congestion and multiple episodes of bloody BM daily. She also has low back pain and uses 2 naprosyn regularly. Also uses occasional ibuprofen. Had upper endoscopy in the past but no colonoscopy. Review of Systems - Constitutional Constitutional: absent: Lethargy - EENT Eyes: absent: Blurred Vision Ears: absent: Decreased Hearing Nose/Mouth/Throat: absent: Epistaxis - Cardiovascular Cardiovascular: absent: Chest Pain - Respiratory Respiratory: Cough - Gastrointestinal Gastrointestinal: absent: Abdominal Pain Past Patient History - Past Medical History & Family History Past Medical History?: Yes - Past Social History Smoking Status: Heavy Smoker > 10 Cigarettes Daily - CARDIAC Hx Hypercholesterolemia: Yes Hx Hypertension: Yes - PULMONARY Hx Asthma: Yes Hx Bronchitis: Yes Hx Chronic Obstructive Pulmonary Disease (COPD): Yes - RENAL Hx Chronic Kidney Disease: No - ENDOCRINE/METABOLIC Hx Endocrine Disorders: No Hx Diabetes Mellitus Type 2: Yes (on metformin at home) - HEMATOLOGICAL/ONCOLOGICAL Hx Blood Disorders: No - INTEGUMENTARY Hx Dermatological Problems: No - MUSCULOSKELETAL/RHEUMATOLOGICAL Hx Musculoskeletal Disorders: No Hx Back Pain: Yes Hx Falls: No Other/Comment: fibromyalgia - GASTROINTESTINAL Hx Gastrointestinal Disorders: No Other/Comment: Pt sttaes she has severe heart burn - GENITOURINARY/GYNECOLOGICAL Hx Genitourinary Disorders: No - PSYCHIATRIC Hx Psychophysiologic Disorder: No Hx Emotional Abuse: No Hx Physical Abuse: No Hx Substance Use: No - SURGICAL HISTORY Hx Surgeries: Yes Hx Herniorrhaphy: Yes Other/Comment: OVARIAN CYST X2 - ANESTHESIA Hx Anesthesia: Yes Hx Anesthesia Reactions: Yes (pt unsure) Hx Malignant Hyperthermia: No Meds Home Medications: Home Medication List Medication Instructions Recorded Confirmed Type Oseltamivir [Tamiflu Cap] 75 mg PO BID #8 cap 07/26/17 Rx Allergies/Adverse Reactions: Allergies Allergy/AdvReac Type Severity Reaction Status Date / Time No Known Allergies Allergy Verified 02/02/14 12:53 - Medications Medications: Current Medications Albuterol (Ventolin Hfa 90 Mcg/Actuation (8 G)) 1 puff IH Q6 PRN PRN Reason: Shortness of Breath Albuterol/Ipratropium (Duoneb 3 Mg/0.5 Mg (3 Ml) Ud) 3 ml INH RQ6 PRN PRN Reason: Shortness of Breath Albuterol/Ipratropium (Duoneb 3 Mg/0.5 Mg (3 Ml) Ud) 3 ml INH RQID [facility] Last Admin: 07/26/17 19:49 Dose: 3 ml Baclofen (Lioresal) 10 mg PO TID [facility] Last Admin: 07/26/17 16:26 Dose: 10 mg Guaifenesin (Robitussin) 100 mg PO Q4 PRN PRN Reason: Cough Last Admin: 07/26/17 21:54 Dose: 100 mg Home Med (Loteprednol Etabonate [Alrex]) 0.2 % EACHEYE DAILY [facility] Hydrochlorothiazide (Microzide) 12.5 mg PO DAILY [facility] Insulin Human Lispro (Humalog) 0 units SC ACHS [facility] PRN Reason: Protocol Last Admin: 07/26/17 21:59 Dose: Not Given Losartan Potassium (Cozaar) 50 mg PO DAILY [facility] Methylprednisolone (Solu-Medrol) 40 mg IVP Q8 [facility] Last Admin: 07/26/17 16:25 Dose: 40 mg Montelukast Sodium (Singulair) 10 mg PO DAILY [facility] Oseltamivir Phosphate (Tamiflu Cap) 75 mg PO BID [facility] PRN Reason: Protocol Last Admin: 07/26/17 16:26 Dose: 75 mg Oxycodone/Acetaminophen (Percocet 5/325 Mg Tab) 1 tab PO Q4 PRN PRN Reason: Pain, moderate (4-7) Stop: 07/29/17 11:26 Last Admin: 07/26/17 16:30 Dose: 1 tab Oxycodone/Acetaminophen (Percocet 5/325 Mg Tab) 2 tab PO Q6 PRN PRN Reason: Pain, severe (8-10) Stop: 07/29/17 11:26 Last Admin: 07/26/17 21:56 Dose: 2 tab Pantoprazole Sodium (Protonix Ec Tab) 40 mg PO BID [facility] Last Admin: 07/26/17 16:26 Dose: 40 mg Pravastatin Sodium (Pravachol) 40 mg PO DAILY [facility] Pregabalin (Lyrica) 75 mg PO BID [facility] Last Admin: 07/26/17 18:15 Dose: 75 mg Fluticasone/Salmeterol (Advair Diskus 100/50) 1 puff IH BID [facility] Last Admin: 07/26/17 16:26 Dose: 1 spr Sertraline HCl (Zoloft) 75 mg PO DAILY [facility] Physical Exam - Head Exam Head Exam: ATRAUMATIC - Eye Exam Eye Exam: Normal appearance Pupil Exam: PERRL - ENT Exam ENT Exam: Mucous Membranes Moist - Neck Exam Neck exam: Positive for: Normal Inspection - Respiratory Exam Respiratory Exam: Clear to Auscultation Bilateral - Cardiovascular Exam Cardiovascular Exam: REGULAR RHYTHM, +S1, +S2 - GI/Abdominal Exam GI & Abdominal Exam: Normal Bowel Sounds, Soft. absent: Tenderness Results - Vital Signs Recent Vital Signs: Last Vital Signs Temp 97.4 F L 07/26/17 16:00 Pulse 101 H 07/26/17 22:00 Resp 19 07/26/17 22:00 BP 126/82 07/26/17 22:00 Pulse Ox 96 07/26/17 22:00 - Labs Result Diagrams: 07/26/17 10:25 07/26/17 07:00 Labs: Laboratory Results - last 24 hr 07/25/17 07/26/17 07/26/17 21:33 01:07 07:00 WBC RBC Hgb Hct MCV MCH MCHC RDW Plt Count Sodium 139 Potassium 4.2 Chloride 106 Carbon Dioxide 24 Anion Gap 13 BUN 14 Creatinine 0.5 L Est GFR ( Amer) > 60 Est GFR (Non-Af Amer) > 60 POC Glucose (mg/dL) 168 H Random Glucose 155 H Calcium 7.9 L Blood Type Confirm A NEGATIVE 07/26/17 07/26/17 07/26/17 08:36 10:25 12:20 WBC 6.9 RBC 3.46 L Hgb 10.3 L D Hct 30.1 L MCV 87.1 MCH 29.8 MCHC 34.2 RDW 16.8 H Plt Count 182 Sodium Potassium Chloride Carbon Dioxide Anion Gap BUN Creatinine Est GFR ( Amer) Est GFR (Non-Af Amer) POC Glucose (mg/dL) 119 H 98 Random Glucose Calcium Blood Type Confirm 07/26/17 07/26/17 16:31 21:40 WBC RBC Hgb Hct MCV MCH MCHC RDW Plt Count Sodium Potassium Chloride Carbon Dioxide Anion Gap BUN Creatinine Est GFR ( Amer) Est GFR (Non-Af Amer) POC Glucose (mg/dL) 172 H 220 H Random Glucose Calcium Blood Type Confirm Assessment & Plan (1) GI bleed Assessment and Plan: Patient has CT evidence of diverticulosis and this could certainly be cause of bleeding. I feel UGI source less likely as BUN did not rise very much and BP responded quickly to fluids. No blood seen since yesterday. Tested + for influenza. Will follow with you clinically. NSAID could, through its antiplatelet , have worsened the bleeding. No immediate colonoscopy due to patient comorbidities. Status: Acute
[2017-07-27] MEDS: MethylPREDNISolone 40 mg Vial IVP SCH ×2 (00:15→08:26)
[2017-07-27 05:46] LABS: HEMOGLOBIN 9.3 g/dL (12.0-16.0); MEAN CELL VOLUME 87.8 fl (81.0-99.0); MEAN CORPUSCULAR HEMOGLOBIN 29.8 pg (27.0-31.0); RBC 3.11 Mil/uL (3.80-5.20); RED CELL DISTRIBUTION WIDTH 16.8 % (11.5-14.5); WHITE BLOOD COUNT 6.1 K/uL (4.8-10.8)
[2017-07-27 06:11] VITALS: PULSE 78
[2017-07-27] MEDS: guaiFENesin 100 mg/5 ml Syrup UD PO PRN (06:25)
[2017-07-27] MEDS: Oxycodone/Acetaminophen 5/325 mg Tab PO PRN (06:26)
[2017-07-27] MEDS: Pantoprazole 40 mg EC Tab PO SCH ×2 (06:26→08:25)
[2017-07-27 06:37] LABS: BLOOD UREA NITROGEN 18 mg/dl (7-17); CALCIUM 8.8 mg/dL (8.4-10.2); GFR AFRICAN-AMERICAN > 60; GFR NON-AFRICAN AMERICAN > 60
[2017-07-27] MEDS: Albuterol-Ipratrop 3 mg / 0.5 (3 ml) UD INH SCH (07:27)
[2017-07-27] MEDS: Fluticasone-Salmeterol 100-50mcg Diskus IH SCH (08:20)
[2017-07-27 08:31] VITALS: BP 127/82
[2017-07-27] MEDS ORDERED: HYDROCHLOROTHIAZIDE PO SCH (09:00)
[2017-07-27] MEDS ORDERED: LOTEPREDNOL ETABONATE 0.2% EACHEYE SCH (09:00)
[2017-07-27] MEDS ORDERED: Pravastatin Sodium 40 MG TAB PO SCH (09:00)
[2017-07-27] MEDS ORDERED: LOSARTAN PO SCH (09:00)
[2017-07-27 09:07] VITALS: RESP 26; TEMP 97.6; O2SAT 93
--- NOTE | 2017-07-27 09:17 | CP.PCM.DIS ---
Provider - Provider Date of Admission: 07/25/17 21:27 Attending physician: Wendy Haro MD Primary care physician: Dr. Pal Consults: GI consult Time Spent in preparation of Discharge (in minutes): 20 Hospital Course - Lab Results Lab Results: Micro Results 07/25/17 21:37 Blood-Venous Blood Culture - Preliminary NO GROWTH AFTER 24 HOURS Most Recent Lab Values WBC 6.1 K/uL (4.8-10.8) 07/27/17 04:40 RBC 3.11 Mil/uL (3.80-5.20) L 07/27/17 04:40 Hgb 9.3 g/dL (12.0-16.0) L 07/27/17 04:40 Hct 27.3 % (34.0-47.0) L 07/27/17 04:40 MCV 87.8 fl (81.0-99.0) 07/27/17 04:40 MCH 29.8 pg (27.0-31.0) 07/27/17 04:40 MCHC 34.0 g/dL (33.0-37.0) 07/27/17 04:40 RDW 16.8 % (11.5-14.5) H 07/27/17 04:40 Plt Count 157 K/uL (130-400) 07/27/17 04:40 MPV 9.5 fl (7.2-11.7) 07/25/17 21:00 Neut % (Auto) 76.3 % (50.0-75.0) H 07/25/17 21:00 Lymph % (Auto) 14.4 % (20.0-40.0) L 07/25/17 21:00 Tripp % (Auto) 7.7 % (0.0-10.0) 07/25/17 21:00 Eos % (Auto) 0.3 % (0.0-4.0) 07/25/17 21:00 Baso % (Auto) 1.3 % (0.0-2.0) 07/25/17 21:00 Neut # (Auto) 9.2 K/uL (1.8-7.0) H 07/25/17 21:00 Lymph # (Auto) 1.7 K/uL (1.0-4.3) 07/25/17 21:00 Tripp # (Auto) 0.9 K/uL (0.0-0.8) H 07/25/17 21:00 Eos # (Auto) 0.0 K/uL (0.0-0.7) 07/25/17 21:00 Baso # (Auto) 0.2 K/uL (0.0-0.2) 07/25/17 21:00 PT 12.7 Seconds (9.8-13.1) 07/25/17 21:00 INR 1.1 (0.9-1.2) 07/25/17 21:00 APTT 49.3 Seconds (25.6-37.1) H 07/25/17 21:00 pO2 19 mm/Hg (30-55) L 07/25/17 21:12 VBG pH 7.32 (7.32-7.43) 07/25/17 21:12 VBG pCO2 52 mmHg (40-60) 07/25/17 21:12 VBG HCO3 22.9 mmol/L 07/25/17 21:12 VBG Total CO2 28.4 mmol/L (22-28) H 07/25/17 21:12 VBG O2 Sat (Calc) 22.6 % (40-65) L 07/25/17 21:12 VBG Base Excess -0.1 mmol/L (0.0-2.0) L 07/25/17 21:12 Sodium 175.0 mmol/L (132-148) H* 07/25/17 21:12 Chloride 123.0 mmol/L (98-107) H 07/25/17 21:12 Glucose 163 mg/dL (65-105) H 07/25/17 21:12 Lactate 4.4 mmol/L (0.7-2.1) H* 07/25/17 21:12 FiO2 21.0 % 07/25/17 21:12 Crit Value Called To Rosales mccullough md 07/25/17 21:12 Crit Value Called By Matthew 07/25/17 21:12 Crit Value Read Back Y 07/25/17 21:12 Blood Gas Notified Time 211507/25/17 21:12 Sodium 141 mmol/l (132-148) 07/27/17 04:45 Potassium 4.6 MMOL/L (3.6-5.0) 07/27/17 04:45 Chloride 105 mmol/L (98-107) 07/27/17 04:45 Carbon Dioxide 25 mmol/L (22-30) 07/27/17 04:45 Anion Gap 16 (10-20) 07/27/17 04:45 BUN 18 mg/dl (7-17) H 07/27/17 04:45 Creatinine 0.6 mg/dl (0.7-1.2) L 07/27/17 04:45 Est GFR ( Amer) > 60 07/27/17 04:45 Est GFR (Non-Af Amer) > 60 07/27/17 04:45 POC Glucose (mg/dL) 130 mg/dL (65-110) H 07/27/17 05:54 Random Glucose 172 mg/dL (65-105) H 07/27/17 04:45 Calcium 8.8 mg/dL (8.4-10.2) 07/27/17 04:45 Total Bilirubin 0.4 mg/dl (0.2-1.3) 07/25/17 21:00 AST 24 U/L (14-36) 07/25/17 21:00 ALT 16 U/L (9-52) 07/25/17 21:00 Alkaline Phosphatase 63 U/L (38-126) 07/25/17 21:00 Troponin I 0.0180 ng/mL (0.00-0.120) 07/25/17 21:00 NT-Pro-B Natriuret Pep 70.8 pg/ml (0-900) 07/25/17 21:00 Total Protein 7.0 G/DL (6.3-8.2) 07/25/17 21:00 Albumin 3.8 g/dL (3.5-5.0) 07/25/17 21:00 Globulin 3.2 gm/dL (2.2-3.9) 07/25/17 21:00 Albumin/Globulin Ratio 1.2 (1.0-2.1) 07/25/17 21:00 Lipase 86 U/L (23-300) 07/25/17 21:00 Influenza Typ A,B (EIA) Pos for influenza a (NEGATIVE) H 07/25/17 21:39 Blood Type A NEGATIVE 07/25/17 21:00 Blood Type Confirm A NEGATIVE 07/25/17 21:33 Antibody Screen Negative 07/25/17 21:00 BBK History Checked No verified bt 07/25/17 21:00 - Hospital Course Hospital Course: 56 y/o female with PMH of GERD, asthma/COPD( heavy smoker ), HTN, HLD, and DM2 came in with 2-3 days of worsening SOB. She complained of generalized weakness. She also noted that she had fresh blood per rectum and diarrhea, up to 12 episodes. Patient denied CP, Abd pain, n/v. Patient denied any unusual ingestions. Patient states she does take ASA 81 daily as well as Naproxen 2x daily and occasionally ibuprofen. She states she has had an endoscopy in the past for GERD, but denies colonoscopy.In ER found to be influenza A positive.CT abdomen showed diverticulosis .physical exam was significant for wheezing .She was admitted for COPD exacerbation , GI bleed and influenza A. She was admitted in telemetry , given Solumedrol 15 mg IV, Duonebs and started on Tamiflu po H7H was monitored with serial CBC. she was started on IVF. Her HGb dropped from 13 -- 10--9.3. she did not experience any other rectal blled since admission , feeling well, tolerating PO intake. GI was consulted . At this point etiology of her GI bleed is unclear . Since she is not actively bleeding she can be discharged home with GI follow up for outpatient colonoscopy. Her breathing improved with Duonebs and Solumedrol IV . Will discharge her home on Tamiflu PO for Influenza ( to finish full treatment ), Medrol pack tapering dose . Can resume the rest of home medications Follow up with PMD Follow up with GI as outpatient for colonoscopy 1. Gastrointestinal bleed of unclear etiology At present no more bleeding episodes since admission Hgb dropped from 13-- 9.3 GI consulted and case discussed with Dr. Treadwell .No need for emergency colonoscopy or EGD patient can follow up and have colonoscopy as outpatient once her respiratory status is more stable tolerating diet Continue PPI 2. COPD exacerbation most likely secondary to Influenza A Started Solumedrol 40 mg IV Q8, Duoneb RTC ,O2 via NC CXR showed no active disease started tamiflu for 5 days for influenza respiratory status showed improvement 3. Chronic pain syndrome/ depression Started on percoset PRN for pain on baclofen, Lyrica, sertraline 4. DM2 accuchhecks , insulin coverage diabetic diet Metformin was held 5. Influenza type A on tamiflu for total 5 days 6. Hypertension controlled on HCTZ and losartan 7. DVT PPx SCDs Discharge Exam - Head Exam Head Exam: ATRAUMATIC, NORMAL INSPECTION, NORMOCEPHALIC - Eye Exam Eye Exam: EOMI, Normal appearance, PERRL Pupil Exam: NORMAL ACCOMODATION - ENT Exam ENT Exam: Mucous Membranes Moist, Normal Exam - Neck Exam Neck exam: Full Rom, Normal Inspection - Respiratory Exam Respiratory Exam: Clear to PA & Lateral, Rhonchi (left hemithorax), NORMAL BREATHING PATTERN. absent: Accessory Muscle Use, Rales, Wheezes, Respiratory Distress - Cardiovascular Exam Cardiovascular Exam: REGULAR RHYTHM, RRR, +S1, +S2. absent: JVD - GI/Abdominal Exam GI & Abdominal Exam: Normal Bowel Sounds, Soft. absent: Distended, Guarding, Rebound, Tenderness - Rectal Exam Rectal Exam: Deferred - Extremities Exam Extremities exam: normal capillary refill, normal inspection, pedal pulses present - Back Exam Back exam: NORMAL INSPECTION - Neurological Exam Neurological exam: Alert, CN II-XII Intact, Oriented x3, Reflexes Normal - Psychiatric Exam Psychiatric exam: Normal Affect, Normal Mood - Skin Skin Exam: Dry, Intact, Normal Color, Warm Discharge Plan - Discharge Medications Prescriptions: Methylprednisolone [Medrol Dose Pack (21 tabs)] 4 mg PO DAILY #21 mg Oseltamivir [Tamiflu Cap] 75 mg PO BID #8 cap - Follow Up Plan Condition: STABLE Disposition: HOME/ ROUTINE Patient education suggested?: Yes Instructions: Flu, Adult (DC), Exacerbation of COPD, Exacerbation of COPD (DC) Additional Instructions: Follow up with GI for outpatient colonoscopy Referrals: Francisco Javier Pal MD [Family Provider] -
[2017-07-27] MEDS ORDERED: Pneumococcal 23-Valent Vaccine IM ONE (09:38)
[2017-07-27] MEDS ORDERED: Influenza Vaccine 18yr & older 0.5 ML/45 MCG SYR IM ONE (09:38)
== END 2017-07-27 10:15 | disposition home or self-care (01) | DRG 174 ==
LOC: H.ER 20:16 → H.ERHOLD 21:27 → H.ICU/CCU 07-26 07:18
PROVIDERS: ADMIT Internal Medicine; ATTEND Internal Medicine
PROC: 3E0F7GC Introduction of Other Therapeutic Substance into Respiratory Tract, Via Natural or Artificial Opening (ICD-10-PCS; principal; 2017-07-26)
PROC: 3E0234Z Introduction of Serum, Toxoid and Vaccine into Muscle, Percutaneous Approach (ICD-10-PCS; 2017-07-27)
DX: K92.1 Melena (principal); J44.1 Chronic obstructive pulmonary disease with (acute) exacerbation; E11.9 Type 2 diabetes mellitus without complications; K21.9 Gastro-esophageal reflux disease without esophagitis; K57.30 Diverticulosis of large intestine without perforation or abscess without bleeding; M79.7 Fibromyalgia; Z79.82 Long term (current) use of aspirin; J40 Bronchitis, not specified as acute or chronic; Z79.84 Long term (current) use of oral hypoglycemic drugs; Z79.899 Other long term (current) drug therapy; M54.5 Low back pain; E78.00 Pure hypercholesterolemia, unspecified; E78.5 Hyperlipidemia, unspecified; F17.210 Nicotine dependence, cigarettes, uncomplicated; F32.9 Major depressive disorder, single episode, unspecified; G89.4 Chronic pain syndrome; I10 Essential (primary) hypertension; J10.1 Influenza due to other identified influenza virus with other respiratory manifestations; Z23 Encounter for immunization